=== PATIENT | male | born 1945 | race Hispanic/Latino ===

== ENCOUNTER 2020-02-09 15:24 | Emergency (ER) | payer MEDICARE, OTHER ==
[~2020-02-09] VITALS: Ht 167.6 cm; Wt 86.2 kg
[2020-02-09] MEDS ORDERED: SODIUM CHLORIDE 0.9% 1000ML 1,000 ML IV STA (15:33)
[2020-02-09 15:52] LABS: BASOPHILS % 0.6 % (0.0-1.0); EOSINOPHILS # (AUTO) 0.2 (0.0-0.4); EOSINOPHILS % 2.2 % (0.0-6.0); HEMATOCRIT 38.9 % (38.2-49.6); HEMOGLOBIN 13.6 g/dL (14.0-18.0); LYMPHOCYTES # (AUTO) 1.8 (1.0-3.2); MEAN CORPUSCULAR HEMOGLOBIN 28.7 pg (28-32); MEAN CORPUSCULAR VOLUME 82.1 fL (81-99); MONOCYTES # (AUTO) 0.6 (0.2-0.8); MONOCYTES % 7.9 % (4.4-11.3); NEUTROPHILS # (AUTO) 4.6 (2.1-6.9); PLATELET COUNT 261 x10e3/uL (140-360); RED BLOOD COUNT 4.74 x10e6/uL (4.3-5.7); RED CELL DISTRIBUTION WIDTH 13.2 % (11.7-14.4)
[2020-02-09 15:53] LABS: INR 1.02
[2020-02-09 15:54] LABS: PARTIAL THROMBOPLASTIN TIME 28.6 seconds (23.8-35.5)
[2020-02-09 16:02] LABS: ALANINE AMINOTRANSFERASE 31 IU/L (0-55); ALBUMIN 4.2 g/dL (3.5-5.0); ALBUMIN/GLOBULIN RATIO 1.2 (0.8-2.0); ALKALINE PHOSPHATASE 64 IU/L (40-150); ANION GAP 16.5 mmol/L (8-16); BILIRUBIN,URINE NEGATIVE (NEGATIVE); BLOOD UREA NITROGEN 15 mg/dL (7-26); BUN/CREATININE RATIO 15 (6-25); CALCIUM 9.7 mg/dL (8.4-10.2); CARBON DIOXIDE 22 mmol/L (22-29); CHLORIDE 103 mmol/L (98-107); CLARITY,URINE HAZY (CLEAR); COLOR,URINE YELLOW (YELLOW); CREATINE KINASE 99 IU/L (30-200); CREATININE, SERUM 0.99 mg/dL (0.72-1.25); EST GLOMERULAR FILTRATION RATE > 60 ML/MIN (60-); GLUCOSE 106 mg/dL (74-118); KETONES,URINE NEGATIVE (NEGATIVE); LEUKOCYTE ESTERASE ,URINE SMALL (NEGATIVE); NITRITE,URINE NEGATIVE (NEGATIVE); POTASSIUM 3.5 mmol/L (3.5-5.1); PROTEIN,URINE DIPSTICK NEGATIVE (NEGATIVE); SODIUM 138 mmol/L (136-145); URINE UROBILINOGEN 0.2 mg/dL (0.2 - 1)
[2020-02-09 16:03] LABS: BACTERIA,URINE FEW /HPF; EPITHELIAL CELLS,URINE FEW /LPF; RBC,URINE 0-5 /HPF (0-5)
--- NOTE | 2020-02-09 16:23 | Diagnostic Imaging Report ---
EXAMINATION: CHEST SINGLE (PORTABLE) INDICATION: ^Y ^ERMD ORDER ^[id number] ^1550 ^Y COMPARISON: None FINDINGS: AP view TUBES and LINES: None. LUNGS: Limited by body habitus and low lung volumes. There is no evidence of pneumonia or pulmonary edema. PLEURA: No pleural effusion or pneumothorax. HEART AND MEDIASTINUM: The cardiomediastinal silhouette is enlarged, accentuated by low lung volumes. BONES AND SOFT TISSUES: No acute osseous lesion. Soft tissues are unremarkable. UPPER ABDOMEN: No free air under the diaphragm. IMPRESSION: No definite focal consolidation, considering limitations of the study. Signed by: Dr. Bhanu King MD on 02/09/2020 4:20 PM
--- NOTE | 2020-02-09 16:29 | Diagnostic Imaging Report ---
Examination: CT head without contrast Clinical Indication: Numbness and weakness. Technique: Transaxial noncontrast images from the skull base through the vertex were obtained. Sagittal and coronal reformatted images were done. Dose modulation, iterative reconstruction, and/or weight based adjustment of the mA/kV was utilized to reduce the radiation dose to as low as reasonably achievable. Comparison: None. Findings: Scalp: No abnormalities. Bones: Intact. No fractures. No blastic or lytic lesions. Brain sulci: Generalized volume loss for patient's age. Ventricles: No hydrocephalus. Extra-axial space: No abnormalities. Parenchyma: There are subtle areas of low-attenuation within subcortical and periventricular white matter, nonspecific, but could represent microvascular ischemic disease. No masses, hemorrhage, or acute or chronic cortical based vascular insults. Suprasellar region: No abnormalities. Craniocervical junction: The foramen magnum is patent. No Chiari one malformation. Impression: 1. No acute intracranial finding. 2. Minimal chronic microvascular ischemic change. Generalized volume loss. Signed by: Dr. Harper Browne M.D. on 02/09/2020 4:25 PM
[2020-02-09 17:01] VITALS: BP 144/73
[2020-02-09] MEDS ORDERED: CEFTRIAXONE SOD 1 GM/NS 50 ML 50 ML IV ONE (17:30)
== END 2020-02-09 17:22 | disposition home or self-care (01) ==
LOC: ER 15:24
DX: R42 Dizziness and giddiness (principal); R53.1 Weakness; N30.90 Cystitis, unspecified without hematuria; I10 Essential (primary) hypertension; E78.5 Hyperlipidemia, unspecified
CPT/HCPCS: 36415; 70450; 71045; 80053; 81001; 82550; 82553; 83880; 84484; 85025; 85610; 85730; 87040; 87086; 87635; 93005; 99284; J0696; J7030

== ENCOUNTER → 2020-03-06 | Day surgery (SDC) | payer MEDICARE, OTHER ==
[2020-03-03 13:45] LABS: BASOPHILS % 0.5 % (0.0-1.0); EOSINOPHILS # (AUTO) 0.2 (0.0-0.4); HEMOGLOBIN 13.4 g/dL (14.0-18.0); LYMPHOCYTES # (AUTO) 1.4 (1.0-3.2); LYMPHOCYTES % 23.2 % (18.0-39.1); MEAN CORPUSCULAR HEMOGLOBIN 28.9 pg (28-32); MEAN CORPUSCULAR HGB CONC 33.5 g/dL (31-35); MEAN CORPUSCULAR VOLUME 86.2 fL (81-99); MONOCYTES # (AUTO) 0.5 (0.2-0.8); MONOCYTES % 8.2 % (4.4-11.3); NEUTROPHILS # (AUTO) 3.8 (2.1-6.9); NEUTROPHILS % 63.8 % (38.7-80.0); PLATELET COUNT 255 x10e3/uL (140-360); RED BLOOD COUNT 4.64 x10e6/uL (4.3-5.7); RED CELL DISTRIBUTION WIDTH 13.9 % (11.7-14.4)
[2020-03-03 14:00] LABS: ANION GAP 15.3 mmol/L (8-16); BLOOD UREA NITROGEN 19 mg/dL (7-26); BUN/CREATININE RATIO 19 (6-25); CALCIUM 10.4 mg/dL (8.4-10.2); CARBON DIOXIDE 25 mmol/L (22-29); CHLORIDE 104 mmol/L (98-107); CREATININE, SERUM 0.99 mg/dL (0.72-1.25); EST GLOMERULAR FILTRATION RATE > 60 ML/MIN (60-); GLUCOSE 94 mg/dL (74-118); POTASSIUM 4.3 mmol/L (3.5-5.1); SODIUM 140 mmol/L (136-145)
--- NOTE | 2020-03-03 14:35 | Diagnostic Imaging Report ---
EXAM: CHEST 2 VIEWS DATE: 03/03/2020 1:20 PM INDICATION: Bladder outlet obstruction, preoperative evaluation COMPARISON: 02/09/2020 FINDINGS: The trachea is midline. The lungs are symmetrically expanded without evidence for large focal consolidation, pneumothorax, or significant pleural effusion. The cardiomediastinal silhouette and pulmonary vasculature are within normal limits. No acute osseous abnormality is identified. The surrounding soft tissues are unremarkable. IMPRESSION: No acute cardiopulmonary process identified. Signed by: Dr. Thor Pelletier MD on 03/03/2020 2:32 PM
[~2020-03-06] MED LIST: AVODART0.5 MG PO; CEFTRIAXONE SOD 1 GM/NS 50 ML 50 ML IV ONE; FLOMAX0.4 MG PO; IOPAMIDOL 300MG/ML 50ML INFUS..BTL IV ONE; LEVOTHYROXINE75 MCG PO; LIDOCAINE HCL 2% 30 ML TUBE ONE; LIDOCAINE JELLY 2% 10ML URO-JET ONE; LOSARTAN-HCTZ1 EAC1 PO; METOPROLOL SUCC25 MG PO; MIDAZOLAM HCL 2 MG/2 ML VIAL ONE
[2020-03-06 10:10] VITALS: BP 116/71
--- NOTE | 2020-03-13 10:32 | Operative Report ---
DATE OF PROCEDURE: 03/06/2020 SURGEON: Clint Garcia MD PREOPERATIVE DIAGNOSIS: Bladder outlet obstruction. POSTOPERATIVE DIAGNOSIS: Bladder outlet obstruction, moderate to severe. OPERATIVE PROCEDURE PERFORMED: Cystoscopy. ANESTHESIA: Local. ESTIMATED BLOOD LOSS: Minimal. INDICATIONS: Mr. Quigley is a 74-year-old gentleman with a long history of bladder outlet obstruction on maximal medical therapy and a little therapeutic improvement. He now presents for potential diagnosis of this problem. PROCEDURE IN DETAIL: The patient was brought into the operating room, placed in supine position. After initiation of general anesthesia, he was prepped and draped in the usual sterile fashion. Flexible cystoscopy was performed. The anterior and posterior urethra were noted to be normal. The prostate revealed moderate to significant trilobar hyperplasia with moderate elevation of the median bar and large kissing lobes in the midline. The bladder was entered with mild difficulty. Upon entrance into the bladder, there were grade 2-3 trabeculations with cellule formation and early diverticula formation noted. Other than the trabeculations, there were no mucosal lesions identified. The ureteral orifices were in normal anatomical position and produced largely clear efflux. The bladder filled without difficulty and the bladder capacity appeared to be normal for his age. The flexible scope was then removed and the patient was transferred to a bed and taken to the postanesthesia care unit in good condition. Of note, the needle and instrument count was correct at the conclusion of the case. Clint Garcia MD HLW/MODL /[id number]
== END | disposition home or self-care (01) ==
LOC: OR 07:55
PROVIDERS: ATTEND Urology
DX: N32.0 Bladder-neck obstruction (principal); N32.89 Other specified disorders of bladder; N32.3 Diverticulum of bladder; N45.1 Epididymitis; G47.33 Obstructive sleep apnea (adult) (pediatric); I10 Essential (primary) hypertension; E03.9 Hypothyroidism, unspecified; K21.9 Gastro-esophageal reflux disease without esophagitis; Z01.810 Encounter for preprocedural cardiovascular examination; Z01.812 Encounter for preprocedural laboratory examination; Z11.59 Encounter for screening for other viral diseases; Z68.32 Body mass index [BMI] 32.0-32.9, adult
CPT/HCPCS: 36415; 52000; 71046; 80048; 85025; 87635; 93005; J0696; J2250

== ENCOUNTER 2020-09-25 22:37 | Emergency (ER) | payer MEDICARE ==
[~2020-09-25] VITALS: Ht 167.6 cm; Wt 86.2 kg
[~2020-09-25 22:37] MED LIST changes: -CEFTRIAXONE SOD 1 GM/NS 50 ML 50 ML IV ONE; -IOPAMIDOL 300MG/ML 50ML INFUS..BTL IV ONE; -LIDOCAINE HCL 2% 30 ML TUBE ONE; -LIDOCAINE JELLY 2% 10ML URO-JET ONE; -MIDAZOLAM HCL 2 MG/2 ML VIAL ONE
[2020-09-25 22:53] LABS: CLARITY,URINE CLEAR (CLEAR); COLOR,URINE YELLOW (YELLOW); KETONES,URINE NEGATIVE (NEGATIVE); LEUKOCYTE ESTERASE ,URINE TRACE (NEGATIVE); NITRITE,URINE NEGATIVE (NEGATIVE); PROTEIN,URINE DIPSTICK NEGATIVE (NEGATIVE); URINE UROBILINOGEN 0.2 mg/dL (0.2 - 1)
[2020-09-25] MEDS ORDERED: SODIUM CHLORIDE 0.9% 1000ML 1,000 ML IV STA (22:54)
[2020-09-25 23:01] LABS: BACTERIA,URINE FEW /HPF; EPITHELIAL CELLS,URINE RARE /LPF; RBC,URINE 0-5 /HPF (0-5)
[2020-09-25 23:04] LABS: BASOPHILS % 0.5 % (0.0-1.0); EOSINOPHILS # (AUTO) 0.3 (0.0-0.4); HEMATOCRIT 39.5 % (38.2-49.6); HEMOGLOBIN 13.6 g/dL (14.0-18.0); LYMPHOCYTES # (AUTO) 2.2 (1.0-3.2); LYMPHOCYTES % 25.7 % (18.0-39.1); MEAN CORPUSCULAR HGB CONC 34.4 g/dL (31-35); MEAN CORPUSCULAR VOLUME 84.2 fL (81-99); MONOCYTES # (AUTO) 0.7 (0.2-0.8); MONOCYTES % 8.8 % (4.4-11.3); NEUTROPHILS # (AUTO) 5.1 (2.1-6.9); NEUTROPHILS % 60.8 % (38.7-80.0); PLATELET COUNT 245 x10e3/uL (140-360); RED BLOOD COUNT 4.69 x10e6/uL (4.3-5.7); RED CELL DISTRIBUTION WIDTH 13.2 % (11.7-14.4)
[2020-09-25 23:22] LABS: ALANINE AMINOTRANSFERASE 25 IU/L (0-55); ALBUMIN 4.4 g/dL (3.5-5.0); ALBUMIN/GLOBULIN RATIO 1.4 (0.8-2.0); ALKALINE PHOSPHATASE 60 IU/L (40-150); ANION GAP 14.4 mmol/L (8-16); BLOOD UREA NITROGEN 20 mg/dL (7-26); BUN/CREATININE RATIO 18 (6-25); CALCIUM 8.8 mg/dL (8.4-10.2); CARBON DIOXIDE 23 mmol/L (22-29); CHLORIDE 102 mmol/L (98-107); CREATININE, SERUM 1.12 mg/dL (0.72-1.25); EST GLOMERULAR FILTRATION RATE > 60 ML/MIN (60-); GLUCOSE 101 mg/dL (74-118); POTASSIUM 3.4 mmol/L (3.5-5.1); SODIUM 136 mmol/L (136-145)
[2020-09-25] MEDS ORDERED: BACTRIM DS TAB1 EACH PO (23:49)
[2020-09-26] MEDS ORDERED: CEFTRIAXONE SOD 1 GM/NS 50 ML 50 ML IV ONE
[2020-09-26 00:33] VITALS: BP 143/76
== END 2020-09-26 00:35 | disposition home or self-care (01) ==
LOC: ER 23:01
DX: N39.0 Urinary tract infection, site not specified (principal); R53.1 Weakness; I10 Essential (primary) hypertension; E03.9 Hypothyroidism, unspecified
CPT/HCPCS: 36415; 80053; 81001; 85025; 99284; J0696; J7030

== ENCOUNTER 2020-10-04 12:29 | Emergency (ER) | payer MEDICARE ==
[~2020-10-04] VITALS: Ht 167.6 cm; Wt 86.2 kg
[~2020-10-04 12:29] MED LIST changes: +BACTRIM DS TAB1 EACH PO
[2020-10-04] MEDS ORDERED: TYLENOL # 31 EA PO (12:37)
[2020-10-04] MEDS ORDERED: ZOFRAN4 MG SL (12:37)
[2020-10-04] MEDS ORDERED: MECLIZINE HCL 12.5 MG TAB PO ONE (13:15)
[2020-10-04 13:23] LABS: CLARITY,URINE CLEAR (CLEAR); COLOR,URINE YELLOW (YELLOW)
[2020-10-04 13:24] LABS: KETONES,URINE NEGATIVE (NEGATIVE); LEUKOCYTE ESTERASE ,URINE NEGATIVE (NEGATIVE); NITRITE,URINE NEGATIVE (NEGATIVE); PROTEIN,URINE DIPSTICK NEGATIVE (NEGATIVE); URINE UROBILINOGEN 0.2 mg/dL (0.2 - 1)
[2020-10-04 13:27] LABS: BACTERIA,URINE RARE /HPF; EPITHELIAL CELLS,URINE FEW /LPF; RBC,URINE 0-5 /HPF (0-5); WBC,URINE (MAN) 0-5 /HPF (0-5)
[2020-10-04] MEDS ORDERED: MECLIZINE HCL12.5 MG PO (13:58)
[2020-10-04 14:08] VITALS: BP 144/78
== END 2020-10-04 14:09 | disposition home or self-care (01) ==
LOC: ER 13:10
DX: R51.9 Headache, unspecified (principal); I10 Essential (primary) hypertension; E03.9 Hypothyroidism, unspecified
CPT/HCPCS: 81001; 99283; J8597

== ENCOUNTER 2024-05-30 15:27 | Outpatient (RCR) | payer MEDICARE ==
[~2024-05-30 15:27] MED LIST changes: +MECLIZINE HCL12.5 MG PO; +TYLENOL # 31 EA PO; +ZOFRAN4 MG SL
== END 2024-06-02 ==
LOC: PT 15:27
PROVIDERS: ATTEND Specialist
DX: M75.102 Unspecified rotator cuff tear or rupture of left shoulder, not specified as traumatic (principal)

== ENCOUNTER 2024-06-18 14:56 | Outpatient (RCR) | payer MEDICARE | END 2024-07-02 | LOC: PT 14:56 | PROVIDERS: ATTEND Specialist | DX: M75.102 Unspecified rotator cuff tear or rupture of left shoulder, not specified as traumatic (principal) ==